=== PATIENT | female | born 1995 | race Caucasian/White ===

== ENCOUNTER → 2021-10-31 | Outpatient (CLI) | payer BC ==
[2021-10-31 10:17] LABS: HEMOGLOBIN 14.1 gm/dl (12.3-15.3); RED BLOOD COUNT 4.66 M/UL (4.00-5.10); WHITE BLOOD COUNT 9.2 K/UL (4.5-11.0)
[2021-10-31 10:38] LABS: BUN/CREATININE RATIO 11 (0-10)
[2021-11-01 07:11] LABS: VITAMIN D, 25-HYDROXY 25.9 ng/mL (30.0-100.0)
== END ==
LOC: LAB 09:36
PROVIDERS: Nurse Practitioner Family
DX: R63.5 Abnormal weight gain (principal)
CPT/HCPCS: 36415; 80053; 80061; 82570; 82607; 83036; 84156; 84439; 84443; 85025; 86038

== ENCOUNTER → 2021-11-23 | Outpatient (CLI) | payer BC | LOC: HEART 5 09:53 | DX: R06.00 Dyspnea, unspecified (principal) | CPT/HCPCS: 94060; 94729 ==